=== PATIENT | female | born 1985 | race Hispanic/Latino ===

== ENCOUNTER 2017-09-18 21:09 | Emergency (ER) | payer MEDICAID ==
[2017-09-18 21:12] VITALS: BMI 37.2
[2017-09-18 21:16] VITALS: RESP 16; TEMP 99; O2SAT 99
[2017-09-18] MEDS ORDERED: Piperacillin/Tazobact 3.375 GM in Sodium Chloride 0.9% 100 ML IVPB STA (21:24)
[2017-09-18] MEDS ORDERED: Sodium Chloride 0.9% 1,000 ML IV STA (21:24)
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
[2017-09-18] MEDS ORDERED: Iohexol 300 100 ML IJ ONE (22:01)
[2017-09-18 22:24] LABS: BASO % 0.3 % (0.0-2.0); EOS # 0.4 K/uL (0.0-0.7); HEMATOCRIT 38.2 % (34.0-47.0); LYMPH # 1.5 K/uL (1.0-4.3); LYMPH % 15.5 % (20.0-40.0); MEAN CELL VOLUME 84.8 fl (81.0-99.0); MEAN PLATELET VOLUME 8.2 fl (7.2-11.7); MONO # 0.8 K/uL (0.0-0.8); MONO % 8.1 % (0.0-10.0); NEUT # 7.1 K/uL (1.8-7.0); NEUT % 72.1 % (50.0-75.0); RED CELL DISTRIBUTION WIDTH 13.4 % (11.5-14.5); WHITE BLOOD COUNT 9.8 K/uL (4.8-10.8)
[2017-09-18 22:37] LABS: ALB/GLOB RATIO 1.2 (1.0-2.1); ALKALINE PHOSPHATASE 95 U/L (38-126); ALT/SGPT 29 U/L (9-52); AST/SGOT 20 U/L (14-36); BILIRUBIN,TOTAL 0.5 mg/dl (0.2-1.3); BLOOD UREA NITROGEN 11 mg/dl (7-17); CALCIUM 8.8 mg/dL (8.4-10.2); CARBON DIOXIDE 29 mmol/L (22-30); CHLORIDE 101 mmol/L (98-107); GFR AFRICAN-AMERICAN > 60; GLUCOSE,RANDOM 93 mg/dL (65-105); POTASSIUM 3.9 MMOL/L (3.6-5.0); SODIUM 139 mmol/l (132-148); TOTAL PROTEIN 7.8 G/DL (6.3-8.2)
[2017-09-19] MEDS ORDERED: DiphenhydrAMINE 50 mg/ml Inj ONE (00:05)
[2017-09-19] MEDS ORDERED: DiphenhydrAMINE 50 mg/ml Inj IVP STA (00:09)
[2017-09-19 01:37] VITALS: BP 110/64; PULSE 83
--- NOTE | 2017-09-19 14:52 | CT ---
PROCEDURE: CT MAXILLOFACIAL BONES WITHOUT CONTRAST HISTORY: b/l facial swelling COMPARISON: None TECHNIQUE: Contiguous axial CT images of the maxillofacial bones were obtained. Coronal and sagittal reformats were generated. Radiation dose: Total exam DLP = 716.53 mGy-cm. This CT exam was performed using one or more of the following dose reduction techniques: Automated exposure control, adjustment of the mA and/or kV according to patient size, and/or use of iterative reconstruction technique. FINDINGS: NASAL BONES: Unremarkable. ORBITS: Unremarkable. PARANASAL SINUSES/ MASTOIDS: Clear. MAXILLA: No destructive bony lesion or fracture is identified. Bilateral mucosal inflammatory changes seen in the maxillary sinuses with right sided mucoid air-fluid level. Multifocal ethmoid sinus disease is also appreciated. MANDIBLE/ TEMPOROMANDIBULAR JOINTS: Unremarkable. SKULL BASE: Unremarkable. TEMPORAL BONES: Middle ears and mastoid grossly unremarkable. OTHER FINDINGS: Reticular markings are increased in the subcutaneous fat at the level of the mandible diffusely suggests of cellulitis without abscess appreciated throughout. No emphysema soft tissue change are appreciated or retained radiodense foreign body. Etiology of this finding is unclear. Mild but diffuse lymphadenopathy is appreciated in the neck incidentally captured in this exam. This primarily based on the Sheer number of lymph nodes scattered throughout the visual neck in general, with a few large lymph nodes identified including a large left level 3 jugular digastric lymph node measuring 1.4 x 3.3 cm and right jugular digastric lymph node measure 1.9 x 2.5 cm. . IMPRESSION: Bilateral lower facial cellulitis is appreciated with neck lymphadenopathy identified bilaterally. No abscess formation, retained radiodense foreign body or emphysema soft tissue changes accompany these findings. Further clinical correlation is recommended. Incidental sinus disease as discussed above.
== END 2017-09-19 01:37 | disposition home or self-care (01) ==
LOC: H.ER 21:09
DX: T78.40XA Allergy, unspecified, initial encounter (principal); K08.89 Other specified disorders of teeth and supporting structures; Z88.0 Allergy status to penicillin; J45.909 Unspecified asthma, uncomplicated; Z98.890 Other specified postprocedural states
CPT/HCPCS: 70488; 80053; 81025; 85025; 87040; 96374; 96375; 99283; J1200; J2270; J2405; J2543; J7040; Q9967

== ENCOUNTER 2017-10-26 16:06 | Emergency (ER) | payer OTHER, MEDICAID ==
[2017-10-26 16:06] VITALS: BMI 37.2
[2017-10-26 16:09] VITALS: BP 136/84; PULSE 72; RESP 16; TEMP 98.6; O2SAT 100
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
--- NOTE | 2017-10-27 11:40 | RAD ---
PROCEDURE: Left Hand Radiographs. HISTORY: hand injury COMPARISON: None. FINDINGS: BONES: No acute fracture or destructive bony lesion identified. JOINTS: Normal. No osteoarthritic changes. SOFT TISSUES: Normal. OTHER FINDINGS: None. IMPRESSION: Unremarkable left hand radiographs.
== END 2017-10-26 17:06 | disposition home or self-care (01) ==
LOC: H.ER 16:06
DX: S63.92XA Sprain of unspecified part of left wrist and hand, initial encounter (principal); V09.9XXA Pedestrian injured in unspecified transport accident, initial encounter; J45.909 Unspecified asthma, uncomplicated; Z88.0 Allergy status to penicillin

== ENCOUNTER 2018-02-04 19:55 | Emergency (ER) | payer MEDICAID ==
[2018-02-04 19:55] VITALS: BMI 36.5
[2018-02-04 20:22] VITALS: BP 111/77; PULSE 92; RESP 18; TEMP 98.2; O2SAT 97
[2018-02-04] MEDS ORDERED: Tetracaine 0.5% Ophth 2 ML BOTTLE ONE (20:47)
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
== END 2018-02-04 22:45 | disposition home or self-care (01) ==
LOC: H.ER 19:55
DX: S05.02XA Injury of conjunctiva and corneal abrasion without foreign body, left eye, initial encounter (principal); Y92.89 Other specified places as the place of occurrence of the external cause; Z88.0 Allergy status to penicillin

== ENCOUNTER 2018-11-09 21:39 | Emergency (ER) | payer BC, MEDICAID ==
[2018-11-09 21:39] VITALS: BMI 36.5
[2018-11-09 22:01] VITALS: BP 126/85; PULSE 78; RESP 16; TEMP 98.1; O2SAT 98
[2018-11-09] MEDS ORDERED: Naproxen 500 MG TAB PO ONE (22:14)
[2018-11-09] MEDS ORDERED: Oxycodone/Acetaminophen 5/325 mg Tab PO STA (22:14)
[2018-11-09] MEDS ORDERED: Silver Sulfadiazine 1% CREAM (50 gm) TOP STA (22:15)
[2018-11-09] MEDS ORDERED: Tdap Vaccine 0.5 ml Vial (10-64 yrs) IM ONE (22:16)
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
[2018-11-09] MEDS ORDERED: Silver Sulfadiazine 1% CREAM (50 gm) ONE (22:25)
[2018-11-09] MEDS ORDERED: Silver Sulfadiazine 1% Cream (20 gm) TOP STA (22:32)
== END 2018-11-09 23:05 | disposition home or self-care (01) ==
LOC: H.ER 21:39
DX: J45.909 Unspecified asthma, uncomplicated (principal); Z88.0 Allergy status to penicillin; Z23 Encounter for immunization